=== PATIENT | female | born 1990 | race Caucasian/White ===

== ENCOUNTER → 2017-01-04 | Emergency (ER) | payer OTHER ==
[~2017-01-04] VITALS: Ht 162.6 cm; Wt 85.3 kg
[~2017-01-04] MED LIST: PRENATAL 19 TA1 EAC1 PO; ZITHROMAX250 MG PO
== END ==
LOC: ED 01:57
DX: O20.9 Hemorrhage in early pregnancy, unspecified (principal); O99.332 Smoking (tobacco) complicating pregnancy, second trimester; F17.200 Nicotine dependence, unspecified, uncomplicated; Z90.89 Acquired absence of other organs; Z88.5 Allergy status to narcotic agent; Z79.899 Other long term (current) drug therapy; Z3A.20 20 weeks gestation of pregnancy
CPT/HCPCS: 36415; 80048; 81001; 84702; 85025; 86900; 86901; 99283; J2790

== ENCOUNTER 2017-01-27 14:18 | Emergency (ER) | payer OTHER ==
[~2017-01-27] VITALS: Ht 162.6 cm; Wt 85.3 kg
[~2017-01-27 14:18] MED LIST changes: -ZITHROMAX250 MG PO
[2017-01-27] MEDS ORDERED: ZITHROMAX250 MG PO (15:05)
== END 2017-01-27 15:17 | disposition home or self-care (01) ==
LOC: ED 14:18
DX: H66.92 Otitis media, unspecified, left ear (principal); F17.200 Nicotine dependence, unspecified, uncomplicated; Z90.49 Acquired absence of other specified parts of digestive tract; Z98.890 Other specified postprocedural states; Z88.5 Allergy status to narcotic agent; Z79.899 Other long term (current) drug therapy
CPT/HCPCS: 99283